=== PATIENT | female | born 1975 | race Hispanic/Latino ===

== ENCOUNTER 2025-04-01 20:11 | Emergency (ER) | payer SELFPAY ==
[~2025-04-01] VITALS: Ht 154.9 cm; Wt 68.0 kg
[2025-04-01 20:15] VITALS: PULSE 79; RESP 18; TEMP 98.4
[2025-04-01] MEDS: SODIUM CHLORIDE 0.9% 1000ML 1,000 ML IV SCH (21:12)
[2025-04-01] MEDS: FAMOTIDINE 20 MG/2 ML VIAL IV STA (21:12)
[2025-04-01] MEDS: ONDANSETRON HCL INJ 2MG/ML 2ML 2 MG/ML VIAL IV STA (21:12)
[2025-04-01] MEDS: Morphine 2mg Syringe 2 MG/ML SYR IV ONE (21:13)
[2025-04-01] MEDS ORDERED: FIORICET 50-301 EACH PO (22:35)
[2025-04-01 22:50] VITALS: BP 172/88; PULSE 76; RESP 18; TEMP 98.4; O2SAT 100
== END 2025-04-01 22:50 | disposition home or self-care (01) ==
LOC: FSED 20:19
DX: R51.9 Headache, unspecified (principal); R07.89 Other chest pain; R11.2 Nausea with vomiting, unspecified
CPT/HCPCS: 70450; 71045; 80053; 84484; 85025; 93005; 99283; J1308; J2270; J2405; J7030